=== PATIENT | male | born 1955 | race Caucasian/White ===

== ENCOUNTER 2016-09-30 04:01 | Emergency (ER) | payer OTHER ==
[~2016-09-30] VITALS: Ht 188 cm; Wt 99.8 kg
[2016-09-30] MEDS ORDERED: ETOMIDATE (2MG/ML) 20ML VIAL IV ONE (04:20)
[2016-09-30] MEDS ORDERED: SUCCINYLCHOLINE CHLORIDE 20 MG/ML 10ML VIAL IV ONE (04:20)
[2016-09-30 04:27] LABS: Basophils # (auto) 0 uL; Basophils % (auto) 0.4 % (0.0-2.0); CONDITION Y; Eosinophils # (auto) 0.1 uL; Eosinophils % (auto) 1.2 % (0.0-7.0); Hematocrit 48.1 % (41.0-53.0); Hemoglobin 16.3 g/dL (13.5-17.5); Lymphocytes # (auto) 2.9 uL; Lymphocytes % (auto) 30.3 % (10.0-50.0); Mean Corpuscular Hemoglobin 31.5 pg (28.0-32.0); Mean Corpuscular Hgb Conc. 33.9 g/dL (32.0-36.0); Mean Corpuscular Volume 93.2 fL (80.0-100.0); Mean Platelet Volume 8.3 fL (7.4-10.4); Monocytes # (auto) 1.1 uL; Neutrophils # (auto) 5.3 uL; Neutrophils % (auto) 56.1 % (37.0-80.0); Platelet Count (auto) 220 10^3/uL (140-450); Red Cell Distribution Width 14.1 % (11.6-16.0); White Blood Cell 9.5 10^3/uL (4.4-10.8)
[2016-09-30] MEDS ORDERED: MIDAZOLAM DRIP 50 mg/50mL NS 50 ML IV ONE (04:30)
[2016-09-30 04:35] VITALS: BP 169/135
[2016-09-30] MEDS ORDERED: PROPOFOL 100 ML IV ONE (04:45)
[2016-09-30] MEDS ORDERED: MIDAZOLAM DRIP 50 mg/50mL NS 50 ML IV SCH (04:48)
[2016-09-30] MEDS ORDERED: PROPOFOL 100 ML IV SCH (04:48)
[2016-09-30 04:49] LABS: Allen Test Modified; Base Excess 0.4 mmol/L (-2.0-2.0); Blood 02Sat 72.7 % (96-100); Blood COHb 1.3 % (0.5-1.5); Blood MetHb 0.2 % (0.0-1.5); HCO3 26.5 mmol/L (22-26.0); HHb 26.9 % (0.0-5.0); MODE MASK - NRB; O2Hb 71.6 % (94.0-97.0); PCO2 47.7 mmHg (35.0-45.0); PCO2(T) 47.7 mmHg (35.0-45.0); PO2 41.8 mmHg (80.0-100.0); PO2(T) 41.8 mmHg (80.0-100.0); Sample Type Arterial; pH 7.362 (7.350-7.450)
[2016-09-30 04:56] LABS: Albumin 3.9 g/dL (3.4-5.0); Anion Gap 11 (5-15); Aspartate Aminotransferase 104 U/L (15-37); BUN/Creatinine Ratio 19.2; Blood Urea Nitrogen 19 mg/dL (7-18); Calcium 8.5 mg/dL (8.5-10.1); Carbon Dioxide 25 mmol/L (21-32); Chloride 105 mmol/L (98-107); GFR African American 98 mL/min; GFR Non-African American 81 mL/min; Glucose 108 mg/dL (74-106); Magnesium 2.1 mg/dL (1.6-2.6); Potassium 3.8 mmol/L (3.5-5.1); Sodium 141 mmol/L (136-145)
[2016-09-30 05:01] LABS: Alkaline Phosphatase 108 U/L (45-117); Bilirubin, Total 0.6 mg/dL (0.2-1.0); Total Protein 8.3 g/dL (6.4-8.2)
[2016-09-30 05:19] LABS: Lactic Acid w/Reflex 3.4 mmol/L (0.4-2.0)
[2016-09-30 05:22] LABS: B-Type Natriuretic Peptide 24.23 pg/mL (0-100); Temperature: 23.6 C (20.0-25.0)
[2016-09-30 05:30] LABS: REFLEX LACTIC ACID YES OR NO YES
[2016-09-30] MEDS ORDERED: MANNITOL FTV 25% 12.5 GM/50 ML 50 ML IV ONE (05:36)
[2016-09-30] MEDS ORDERED: MANNITOL 20% SOLN 100 gm/500ml 250 ML IV ONE (05:45)
[2016-09-30] MEDS ORDERED: DEXAMETHASONE SOD PHOS 10MG/1ML VIAL INJ IV ONE (05:45)
[2016-09-30] MEDS ORDERED: MANNITOL FTV 25% 12.5 GM/50 ML 100 ML IV ONE (05:48)
[2016-09-30 06:24] LABS: Base Excess 2.1 mmol/L (-2.0-2.0); Blood 02Sat 98.9 % (96-100); Blood COHb 0.5 % (0.5-1.5); Blood MetHb 0.4 % (0.0-1.5); HCO3 25.6 mmol/L (22-26.0); HHb 1.1 % (0.0-5.0); MODE VENT - A/C; PCO2 36.5 mmHg (35.0-45.0); PCO2(T) 36.5 mmHg (35.0-45.0); PO2 234.3 mmHg (80.0-100.0); PO2(T) 234.3 mmHg (80.0-100.0); Sample Type Arterial; pH 7.464 (7.350-7.450)
[2016-09-30 06:25] VITALS: BP 118/78
[2016-09-30] MEDS ORDERED: ACETAMINOPHEN 650 MG RECT SUPP PR ONE (06:35)
[2016-09-30 06:41] VITALS: BP 157/77
== END 2016-09-30 07:10 | disposition short-term general hospital (02) ==
LOC: ER 04:05
DX: I63.9 Cerebral infarction, unspecified (principal); I61.3 Nontraumatic intracerebral hemorrhage in brain stem; F12.10 Cannabis abuse, uncomplicated; F17.210 Nicotine dependence, cigarettes, uncomplicated; R41.82 Altered mental status, unspecified
CPT/HCPCS: 31500; 36415; 36600; 51702; 70450; 71010; 72125; 80053; 80307; 80320; 82805; 83605; 83735; 83880; 84484; 85025; 85379; 87070; 87077; 87186; 87205; 94002; 94003; 96365; 96366; 96368; 96375; 99291; J0330; J2150; J2250; J2704